=== PATIENT | male | born 1960 | race Caucasian/White ===

== ENCOUNTER 2019-01-14 00:22 | Observation (INO) | payer MEDICARE, OTHER ==
[~2019-01-14] VITALS: Ht 165.1 cm; Wt 81.7 kg
[2019-01-14] VITALS (11 sets, daily range): BP systolic 104–128; BP diastolic 43–97
[2019-01-14] MEDS ORDERED: CETI-267 PO ×2 (00:30→11:32)
[2019-01-14] MEDS ORDERED: LITH150C PO (00:30)
--- OUTSIDE RECORDS SUMMARY | 2019-01-14 00:33 | XMS REPORT | Continuity of Care Document ---
Demographics Preferred Language Unknown Marital Status Unknown Latter-Day Affiliation Unknown Race Unknown Ethnic Group Unknown Author Organization Unknown Address Unknown Allergies Active Description Code Type Severity Reaction Onset Reported/Identified Relationship to Patient Clinical Status Yes Wellbutrin XL Drug Allergy 03/19/2011 Yes Wellbutrin XL Drug Allergy N/A N/A 03/19/2011 Medications There is no data. Problems Date Dx Coded Attending Type Code Diagnosis Diagnosed By 12/24/2010 CHRIS FONTANA DO 296.60 MO BIPOLAR I MIXED UNSPECIFIED 01/22/2011 CHRIS FONTANA DO 296.80 MO BIPOLAR NOS 01/22/2011 CHRIS FONTANA DO V58.69 LONG-TERM (CURRENT) USE OF OTHER MEDICATIONS 02/03/2011 CHRIS FONTANA DO 296.50 MO BIPOLAR I DEPRESSED UNSPECIFIED 03/08/2011 CHRIS FONTANA DO 300.02 AN GEN ANXIETY Procedures There is no data. Results Test Result Range LIPID PANEL - 12/26/18 12:14 CHOLESTEROL, TOTAL 173 mg/dL <200 HDL CHOLESTEROL 41 mg/dL >40 TRIGLYCERIDES 170 mg/dL <150 LDL-CHOLESTEROL 103 mg/dL (calc) NRG CHOL/HDLC RATIO 4.2 (calc) <5.0 NON HDL CHOLESTEROL 132 mg/dL (calc) <130 GLUCOSE, SERUM - 12/26/18 12:14 GLUCOSE 83 mg/dL 65-99 Encounters ACCT No. Visit Date/Time Discharge Status Pt. Type Provider Facility Loc./Unit Complaint [id number] 2018 17:45:00 Document Registration [id number] 04/21/2011 11:00:00 04/21/2011 23:59:59 CLS Outpatient CHRIS FONTANA DO
--- NOTE | 2019-01-14 00:36 | ED Chest Pain ---
General Chief Complaint: Chest Pain Stated Complaint: CHEST PAIN Source: patient, EMS, spouse Exam Limitations: no limitations History of Present Illness Date Seen by Provider: Jan 14, 2019 Time Seen by Provider: 00:18 Initial Comments The patient presents to the ER by EMS from [facility] with chief complaint of chest pain starting about 2345. He states this pain is stabbing, sharp in his right chest radiating towards his right shoulder and his left chest. He's never had a pain like this before. No history of coronary disease. He does have borderline diabetes but does not take any medications routinely. He is known to the [facility]. His been having problems for the past year of some tiredness early on in the afternoon this [facility] but [facility] have not found a diagnosis yet. He has a history of bipolar disorder with anxiety. The does not have any drug allergies. He does not drink or use any recreational drugs. He smokes about 5 cigarettes per day. His dad of a heart attack in his 70s but not any early onset coronary disease in primary family. No swelling in the hands or feet but he is having some tingling in his hands and feet. He has a history of GERD and took omeprazole about 2:00 in the afternoon routinely. He has a history of COPD and nebulizer at home but has not been using it recently does not need it. Denies shortness of breath. He was Short of breath when the pain was coming on but that has resolved. EMS reports that his pain was waning by the time they arrived 3 out of 10. They did not have an IV yet so they put nitroglycerin paste 1 inch. His pain went to 0. Initial EKGs were unremarkable. Allergies and Home Medications Allergies Coded Allergies: No Known Drug Allergies (Unverified , 01/14/19) Patient Home Medication List Home Medication List Reviewed: Yes Review of Systems Review of Systems Constitutional: No chills, No diaphoresis EENTM: No Blurred Vision, No Double Vision Respiratory: Denies Cough, Denies Shortness of Air, Denies SOA With Exertion Cardiovascular: See HPI, Chest Pain; Denies Edema Gastrointestinal: Denies Constipated, Denies Diarrhea, Denies Nausea Genitourinary: Denies Burning, Denies Discharge Musculoskeletal: No back pain, No joint pain Skin: No pruritus, No rash Psychiatric/Neurological: Denies Headache, Denies Numbness Past Vzllljv-Xyhxph-Lghntv Hx Patient Social History Alcohol Use: Denies Use Recreational Drug Use: No Smoking Status: Current Everyday Smoker Type Used: Cigarettes (1 pack per day) Physical Exam Vital Signs Vital Signs - First Documented Capillary Refill : Height, Weight, BMI Height: '" Weight: lbs. oz. kg; BMI Method: General Appearance: No Apparent Distress, WD/WN HEENT: PERRL/EOMI, Pharynx Normal, Moist Mucous Membranes Neck: Full Range of Motion, Normal Inspection, Non Tender, Supple Respiratory: Chest Non Tender, Lungs Clear, Normal Breath Sounds, No Accessory Muscle Use, No Respiratory Distress Cardiovascular: Regular Rate, Rhythm, No Edema, No Gallop, No Murmur, Normal Peripheral Pulses Gastrointestinal: Normal Bowel Sounds, Non Tender, Soft Extremity: Normal Capillary Refill, Normal Inspection, Normal Range of Motion, Non Tender, No Calf Tenderness, No Pedal Edema Neurologic/Psychiatric: Alert, Oriented x3, No Motor/Sensory Deficits Skin: Normal Color, Warm/Dry Progress/Results/Core Measures Results/Orders Lab Results Laboratory Tests Test 01/14/19 00:25 Range/Units White Blood Count 9.2 4.3-11.0 10^3/uL Red Blood Count 4.80 4.35-5.85 10^6/uL Hemoglobin 14.7 13.3-17.7 G/DL Hematocrit 43 40-54 % Mean Corpuscular Volume 89 80-99 FL Mean Corpuscular Hemoglobin 31 25-34 PG Mean Corpuscular Hemoglobin Concent 34 32-36 G/DL Red Cell Distribution Width 13.4 10.0-14.5 % Platelet Count 245 130-400 10^3/uL Mean Platelet Volume 10.9 H 7.4-10.4 FL Neutrophils (%) (Auto) 53 42-75 % Lymphocytes (%) (Auto) 34 12-44 % Monocytes (%) (Auto) 8 0-12 % Eosinophils (%) (Auto) 5 0-10 % Basophils (%) (Auto) 1 0-10 % Neutrophils # (Auto) 4.9 1.8-7.8 X 10^3 Lymphocytes # (Auto) 3.1 1.0-4.0 X 10^3 Monocytes # (Auto) 0.7 0.0-1.0 X 10^3 Eosinophils # (Auto) 0.4 H 0.0-0.3 10^3/uL Basophils # (Auto) 0.1 0.0-0.1 10^3/uL Prothrombin Time 12.5 12.2-14.7 SEC INR Comment 0.9 0.8-1.4 Activated Partial Thromboplast Time 27 24-35 SEC D-Dimer 0.48 0.00-0.49 UG/ML Sodium Level 140 135-145 MMOL/L Potassium Level 3.9 3.6-5.0 MMOL/L Chloride Level 105 98-107 MMOL/L Carbon Dioxide Level 22 21-32 MMOL/L Anion Gap 13 5-14 MMOL/L Blood Urea Nitrogen 17 7-18 MG/DL Creatinine 1.19 0.60-1.30 MG/DL Estimat Glomerular Filtration Rate > 60 BUN/Creatinine Ratio 14 Glucose Level 95 70-105 MG/DL Calcium Level 9.7 8.5-10.1 MG/DL Corrected Calcium 9.6 8.5-10.1 MG/DL Magnesium Level 2.1 1.8-2.4 MG/DL Total Bilirubin 0.2 0.1-1.0 MG/DL Aspartate Amino Transf (AST/SGOT) 26 5-34 U/L Alanine Aminotransferase (ALT/SGPT) 23 0-55 U/L Alkaline Phosphatase 67 40-136 U/L Myoglobin 40.9 10.0-92.0 NG/ML Troponin I < 0.028 <0.028 NG/ML B-Type Natriuretic Peptide < 10.0 <100.0 PG/ML Total Protein 6.5 6.4-8.2 GM/DL Albumin 4.1 3.2-4.5 GM/DL Lipase 56 8-78 U/L Thyroid Stimulating Hormone (TSH) 1.19 0.35-4.94 UIU/ML My Orders Orders - IVELISSE,MALIK J Cbc With Automated Diff (01/14/19:) Magnesium (01/14/19:) Chest 1 View, Ap/Pa Only (01/14/19:) Ekg Tracing (01/14/19:) Cardiac Profile 1 (01/14/19:) Comprehensive Metabolic Panel (01/14/19:) Myoglobin Serum (01/14/19:) Protime With Inr (7/7/19 00:29) Partial Thromboplastin Time (01/14/19 00:29) O2 (01/14/19 00:29) Monitor-Rhythm Ecg Trace Only (01/14/19 00:29) Lipid Panel (01/15/19 06:00) Ed Iv/Invasive Line Start (01/14/19 00:29) Lipase (01/14/19 00:29) BNP (01/14/19 00:29) Fibrin Degradation Products (01/14/19 00:29) Thyroid Stimulating Hormone (01/14/19 00:37) Vital Signs/I&O 01/14/19 01/14/19 01/14/19 00:22 00:22 00:22 Temp 96.7 Pulse 84 Resp 12 B/P (MAP) 138/97 (111) Pulse Ox 98 98 O2 Delivery Room Air Room Air Room Air Progress Progress Note #1: Time: 00:35 Progress Note Labs, chest x-ray, initial EKG unremarkable. Received Nitropaste on his chest he is currently pain-free. If he remains pain-free we may remove it as he was resolved his pain spontaneously before they intervened. EMS already gave him aspirin en route. ED ACS 19 points. Not low risk. This patient is not a candidate for early discharge and should receive a standard chest pain evaluation with delayed troponin testing. Progress Note #2: Time: 01:48 Progress Note The patient is still chest pain-free however his blood pressure slipped down to about 100 systolic so we removed the nitroglycerin paste. He's having some epigastric discomfort so we will give him a GI cocktail. Initial ECG Impression Date: Jan 14, 2019 Initial ECG Impression Time: 00:25 Initial ECG Rate: 88 Initial ECG Rhythm: Normal Sinus Initial ECG Intervals: Normal Initial ECG Impression: Normal Initial ECG Comparisson: No Previous ECG Available Comment No clinically significant ST elevation or depression. Diagnostic Imaging Diagonstic Imaging: Xray Plain Films/CT/US/NM/MRI: chest (1v) Comments No acute cardiopulmonary findings. Reviewed: Reviewed by Me Departure Communication (Admissions) Time/Spoke to Admitting Phy: 01:45 Discussed the case lab EKG imaging findings with Dr. Tatum she agrees to observe the patient. Consult with cardiology. Time/Spoke to Consulting Phy: 01:45 Discussed the case with Dr. Ortiz he agrees to consult on the patient and would recommend morphine over nitroglycerin if he has chest pain recurrence. He would prefer the patient had a cardiac stepdown since he's having epigastric discomfort. Impression Primary Impression: Chest pain Qualified Codes: R07.9 - Chest pain, unspecified Disposition: ADMITTED INPATIENT Condition: Stable Admissions Decision to Admit Reason: Admit from ER (General) Decision to Admit/Date: Jan 14, 2019 Time/Decision to Admit Time: 01:35 Departure-Patient Inst. Referrals: NO,LOCAL PHYSICIAN (PCP) Primary Care Physician MALIK OVIEDO Jan 14, 2019 00:36
[2019-01-14 00:37] LABS: BASOPHILS # (AUTO) 0.1 10^3/uL (0.0-0.1); BASOPHILS % (AUTO) 1 % (0-10); EOSINOPHILS # (AUTO) 0.4 10^3/uL (0.0-0.3); EOSINOPHILS % (AUTO) 5 % (0-10); HEMATOCRIT 43 % (40-54); HEMOGLOBIN 14.7 G/DL (13.3-17.7); LYMPHOCYTES # (AUTO) 3.1 X 10^3 (1.0-4.0); LYMPHOCYTES % (AUTO) 34 % (12-44); MEAN CORPUSCULAR HEMOGLOBIN 31 PG (25-34); MEAN CORPUSCULAR HGB CONC 34 G/DL (32-36); MEAN CORPUSCULAR VOLUME 89 FL (80-99); MEAN PLATELET VOLUME 10.9 FL (7.4-10.4); MONOCYTES # (AUTO) 0.7 X 10^3 (0.0-1.0); MONOCYTES % (AUTO) 8 % (0-12); NEUTROPHILS # (AUTO) 4.9 X 10^3 (1.8-7.8); NEUTROPHILS % (AUTO) 53 % (42-75); PLATELET COUNT 245 10^3/uL (130-400); RED CELL DISTRIBUTION WIDTH 13.4 % (10.0-14.5); WHITE BLOOD COUNT 9.2 10^3/uL (4.3-11.0)
[2019-01-14 00:48] LABS: INR 0.9 (0.8-1.4); PROTHROMBIN TIME PATIENT 12.5 SEC (12.2-14.7)
[2019-01-14 00:58] LABS: ALANINE AMINOTRANSFERASE 23 U/L (0-55); ALBUMIN 4.1 GM/DL (3.2-4.5); ALKALINE PHOSPHATASE 67 U/L (40-136); BILIRUBIN,TOTAL 0.2 MG/DL (0.1-1.0); BUN/CREATININE RATIO 14; CALCIUM 9.7 MG/DL (8.5-10.1); CARBON DIOXIDE 22 MMOL/L (21-32); CHLORIDE 105 MMOL/L (98-107); CREATININE SERUM 1.19 MG/DL (0.60-1.30); GFR ESTIMATED > 60; GLUCOSE 95 MG/DL (70-105); LIPASE 56 U/L (8-78); MAGNESIUM 2.1 MG/DL (1.8-2.4); POTASSIUM 3.9 MMOL/L (3.6-5.0); SODIUM 140 MMOL/L (135-145); TOTAL PROTEIN 6.5 GM/DL (6.4-8.2)
--- NOTE | 2019-01-14 01:35 | NUR ---
ntg paste removed d/t pt hypotension. erp speaking with patient.
[2019-01-14] MEDS ORDERED: FAMOTIDINE 20 MG (PEPCID) TABLET PO STA (01:47)
[2019-01-14] MEDS ORDERED: LIDOCAINE 2% VISCOUS 15 ML UDC PO ONE (02:00)
[2019-01-14] MEDS ORDERED: ANTACID SUSP 30 ML UDC (MYLANTA) PO ONE (02:00)
--- OUTSIDE RECORDS SUMMARY | 2019-01-14 02:01 | XMS REPORT | Continuity of Care Document ---
Demographics Preferred Language Unknown Marital Status Unknown Buddhist Affiliation Unknown Race Unknown Ethnic Group Unknown [...] Status Pt. Type Provider Facility Loc./Unit Complaint [id number] 2018 17:45:00 Document Registration [id number] 04/21/2011 11:00:00 04/21/2011 23:59:59 CLS Outpatient CHRIS FONTANA DO
[2019-01-14] MEDS ORDERED: ANTACID SUSP 30 ML UDC (MYLANTA) PO PRN (03:15)
[2019-01-14] MEDS ORDERED: CATHETER FLUSH 10 ML SYR IV PRN (03:15)
[2019-01-14] MEDS ORDERED: ONDANSETRON 4 MG/2 ML (SDV) Z0FRAN IV PRN (03:15)
[2019-01-14] MEDS ORDERED: ACETAMINOPHEN 500 MG TAB (TYLENOL) PO PRN (03:15)
[2019-01-14] MEDS ORDERED: morphine INJ 4 MG/ML 1 ML (VIAL/SYRINGE) IV PRN (03:15)
[2019-01-14 03:39] LABS: BASOPHILS % (AUTO) 1 % (0-10); EOSINOPHILS # (AUTO) 0.4 10^3/uL (0.0-0.3); EOSINOPHILS % (AUTO) 5 % (0-10); HEMATOCRIT 44 % (40-54); HEMOGLOBIN 14.8 G/DL (13.3-17.7); LYMPHOCYTES # (AUTO) 2.9 X 10^3 (1.0-4.0); LYMPHOCYTES % (AUTO) 33 % (12-44); MEAN CORPUSCULAR HEMOGLOBIN 30 PG (25-34); MEAN CORPUSCULAR HGB CONC 34 G/DL (32-36); MEAN CORPUSCULAR VOLUME 89 FL (80-99); MEAN PLATELET VOLUME 10.7 FL (7.4-10.4); MONOCYTES # (AUTO) 0.6 X 10^3 (0.0-1.0); MONOCYTES % (AUTO) 7 % (0-12); NEUTROPHILS # (AUTO) 4.7 X 10^3 (1.8-7.8); NEUTROPHILS % (AUTO) 54 % (42-75); PLATELET COUNT 242 10^3/uL (130-400); RED CELL DISTRIBUTION WIDTH 13.6 % (10.0-14.5); WHITE BLOOD COUNT 8.6 10^3/uL (4.3-11.0)
[2019-01-14 04:03] LABS: ALANINE AMINOTRANSFERASE 23 U/L (0-55); ALKALINE PHOSPHATASE 66 U/L (40-136); BILIRUBIN,TOTAL 0.3 MG/DL (0.1-1.0); BUN/CREATININE RATIO 17; CALCIUM 9.5 MG/DL (8.5-10.1); CARBON DIOXIDE 21 MMOL/L (21-32); CHLORIDE 106 MMOL/L (98-107); CHOLESTEROL 176 MG/DL (< 200); CREATININE SERUM 1.09 MG/DL (0.60-1.30); GFR ESTIMATED > 60; GLUCOSE 97 MG/DL (70-105); HDL CHOLESTEROL 36 MG/DL (40-60); SODIUM 139 MMOL/L (135-145); TOTAL PROTEIN 6.3 GM/DL (6.4-8.2); TRIGLYCERIDES 189 MG/DL (<150); VLDL CHOLESTEROL 38 MG/DL (5-40)
[2019-01-14] MEDS: CATHETER FLUSH 10 ML SYR IV SCH ×2 (05:11→13:46)
--- NOTE | 2019-01-14 06:33 | Short Stay Summary-Hospitalist ---
History of Present Illness HPI/Chief Complaint Pt is a 58yoCM who presented to the ER due to sharp stabbing central chest pain [place]. He has never had a similar experience. He was given nitropaste which improved his symptoms. He believes he was sweaty and SOB with it as well but is unsure because he was distracted by the pain. He denied any radiation of the pain. He denies pain presently. He was admitted for ACS rule out. Source: patient Date Seen 01/14/19 Time Seen by a Provider: 06:15 Attending Physician Agatha Tatum MD PCP No,Local Physician Referring Physician Date of Admission Jan 14, 2019 at 01:00 Home Medications & Allergies Home Medications Reviewed patient Home Medication Reconciliation performed by pharmacy medication reconciliations cctv technician and/or nursing. Patients Allergies have been reviewed. Allergies Allergies Coded Allergies No Known Drug Allergies (Unverified01/14/19) Past Aeqqloo-Lwbdoz-Blptdb Hx Past Med/Social Hx: Reviewed Nursing Past Med/Soc Hx Patient Social History Alcohol Use: Denies Use Recreational Drug Use: No Smoking Status: Current Everyday Smoker Cigaretts per day: 30 Type Used: Cigarettes (1 pack per day) 2nd Hand Smoke Exposure: Yes Recent Foreign Travel: No Contact w/other who traveled: No Recent Hopitalizations: No Recent Infectious Disease Expo: No Immunizations Up To Date Tetanus Booster (TDap): Unknown Date of Pneumonia Vaccine: Apr 10, 2017 Seasonal Allergies Seasonal Allergies: Yes Past Medical History Surgeries: Gallbladder, Nose, Orthopedic, Rectal Gastrointestinal: Gastroesophageal Reflux, Diverticulosis Psychosocial: Bipolar History of Blood Disorders: No Family History Reviewed Nursing Family Hx Cardiovascular disease 19 FATHER, , Onset:Unknown Diabetes mellitus 19 FATHER, , Onset:Unknown FH: lung disease 19 FATHER, , Onset:Unknown Hip fracture 19 MOTHER, Onset:60 years & older Review of Systems Constitutional: no symptoms reported EENTM: no symptoms reported Respiratory: see HPI Cardiovascular: see HPI Gastrointestinal: no symptoms reported; No abdominal pain, No nausea, No vomiting Genitourinary: no symptoms reported Musculoskeletal: no symptoms reported Skin: no symptoms reported Psychiatric/Neurological: No Symptoms Reported Physical Exam Physical Exam Vital Signs Vital Signs - First Documented Capillary Refill : Less Than 3 Seconds Height, Weight, BMI Height: 5'5.00" Weight: 180lbs. 1.0oz. 81.425579pd; 30.0 BMI Method:Estimated General Appearance: No Apparent Distress, WD/WN HEENT: PERRL/EOMI, Normal ENT Inspection, Moist Mucous Membranes; No Scleral Icterus (L), No Scleral Icterus (R) Neck: Normal Inspection, Supple; No Thyromegaly Respiratory: Lungs Clear, No Accessory Muscle Use, No Respiratory Distress Cardiovascular: Regular Rate, Rhythm, No Edema, No JVD, No Murmur, Normal Peripheral Pulses Gastrointestinal: Normal Bowel Sounds, Non Tender, Soft; No Guarding, No Rebound, No Tenderness Extremity: Normal Capillary Refill, Normal Inspection, Non Tender, No Pedal Edema Neurologic/Psychiatric: Alert, Oriented x3, Normal Mood/Affect; No Aphasia, No Facial Droop Skin: Normal Color, Warm/Dry Results Results/Procedures Labs Patient resulted labs reviewed. Imaging: Reviewed Imaging Report Short Stay Diagnosis Discharge Diagnosis-Short Stay Admission Diagnosis Chest Pain Final Discharge Diagnosis Chest Pain Conclusion Plan Chest pain Troponin negative on presentation, EKG- No STEMI Cardiology consulted appreciate recs Slightly elevated troponin on second check Underwent cardiac cath which was negative for coronary disease Discharge to home in stable condition following cath recovery Clinical Quality Measures AMI/AHF: ASA po Prior to arrival: Yes DVT/VTE Risk/Contraindication: Risk Factor Score Per Nursin RFS Level Per Nursing on Admit: 2=Moderate AGATHA TATUM MD Jan 14, 2019 06:33
--- NOTE | 2019-01-14 07:03 | Diagnostic Imaging Report ---
Indication: Chest pain. Comparison: None. Discussion: Single portable upright view of the chest was obtained. Normal heart size. No focal consolidation, pleural fluid, or pneumothorax. No osseous abnormality. Impression: 1. Negative portable chest. Dictated by: Dictated on workstation # [id number]
[2019-01-14] MEDS ORDERED: meTOprolol TARTRATE 50 MG (LOPRESSOR) TAB PO SCH (09:00)
[2019-01-14] MEDS ORDERED: lisINopril 5 MG (PRINIVIL) TABLET PO SCH (09:00)
[2019-01-14] MEDS ORDERED: ASPIRIN E.C. 81 MG (ECOTRIN) TAB PO SCH (09:00)
--- NOTE | 2019-01-14 10:34 | Consultation-Cardiology ---
HPI-Cardiology Cardiology Consultation: Date of Consultation 01/14/19 Time Seen by a Provider: 10:15 Date of Admission Attending Physician Kathrine Tatum MD Admitting Physician No,Local Physician Consulting Physician JAIDEN TAY MD, MA, FACP, FACC, [facility], CCDS Physician requesting consult: Dr Tatum HPI: Chief Complaint: CC: Chest pain HPI: 58 yo with chest pain: epigastric and lower parasternal, sharp, severe, co ntinuous for 2-3 hours, never experienced before, partially relieved with s/l NTG in ER, associated some diaphoresis and some shortness of breath, radiating towards the R shoulder, no recurrence. Has chronic, mild, exertional shortness of breath. No leg swelling or fever or chills or palp or syncope. Review of Systems-Cardiology Review of Systems Constitutional: No malaise, No tiredness Eyes: No vision change Ears/Nose/Throat: No ear discharge, No nasal drainage, No recent hearing loss Respiratory: As described under HPI Cardiovascular: As described under HPI Gastrointestinal: No diarrhea, No nausea, No vomiting Genitourinary: No dysuria, No hematuria, No urine frequency changes Musculoskeletal: No back pain, No joint pain Skin: No rash, No ulcerations Psychiatric/Neurological: No seizure, No focal weakness, No syncope Hematologic: No bleeding abnormalities LCV-Tgrnqe-Zgnbba Hx Patient Social History Alcohol Use: Denies Use Recreational Drug Use: No Smoking Status: Current Everyday Smoker Type Used: Cigarettes (1 pack per day) 2nd Hand Smoke Exposure: Yes Recent Foreign Travel: No Recent Infectious Disease Expo: No Hospitalization with Isolation: Denies Immunizations Up To Date Tetanus Booster (TDap): Unknown Date of Pneumonia Vaccine: Apr 10, 2017 Past Medical History PMH As described under Assessment. Family Medical History Family History: Cardiovascular disease 19 FATHER, , Onset:Unknown Diabetes mellitus 19 FATHER, , Onset:Unknown FH: lung disease 19 FATHER, , Onset:Unknown Hip fracture 19 MOTHER, Onset:60 years & older Allergies and Home Medications Allergies Coded Allergies: No Known Drug Allergies (Unverified , 01/14/19) Patient Home Medication List Home Medication List Reviewed: Yes Physical Exam-Cardiology Physical Exam Vital Signs/I&O 01/14/19 01/14/19 01/14/19 01/14/19 00:22 00:22 00:22 02:15 Temp 96.7 96.7 Pulse 84 82 Resp 12 18 B/P (MAP) 138/97 (111) 103/79 (87) Pulse Ox 98 98 97 O2 Delivery Room Air Room Air Room Air Room Air 01/14/19 01/14/19 01/14/19 01/14/19 02:50 02:51 03:00 03:15 Temp 97.5 Pulse 77 77 76 Resp 16 15 B/P (MAP) 128/86 (100) 109/65 (80) Pulse Ox 96 97 O2 Delivery Room Air Room Air Room Air 01/14/19 01/14/19 01/14/19 01/14/19 03:30 03:45 04:00 04:00 Pulse 75 79 76 Resp 16 15 16 B/P (MAP) 126/90 (102) 111/73 (86) 114/61 (78) Pulse Ox 97 97 98 O2 Delivery Room Air Room Air Room Air Room Air 01/14/19 01/14/19 01/14/19 01/14/19 05:00 06:00 07:00 08:00 Pulse 81 88 79 81 Resp 14 21 19 B/P (MAP) 122/77 (92) 106/85 (92) 117/97 (104) Pulse Ox 97 96 95 O2 Delivery Room Air Room Air Room Air 01/14/19 01/14/19 01/14/19 08:06 08:10 08:15 Temp 98.0 O2 Delivery Room Air Room Air Capillary Refill : Less Than 3 Seconds Constitutional: AAO x 3, well-developed, well-nourished HEENT: EOMI, hearing is well preserved; No xanthelasmas are seen Neck: carotid pulses are 2 + bilaterally, with good upstrokes Respiratory: accessory muscle use, other (Good bilat air entry) Cardiovascular: regular rate-rhythm, S1 and S2, systolic murmur (soft LITZY at card base) Gastrointestinal: No tender; soft; No guarding, No rebound; audible bowel sounds Extremities: No clubbing, No cyanosis, No significant edema Neurologic/Psychiatric: oriented x 3, grossly intact, power is 5/5 both on sides Skin: No rash on exposed areas, No ulcerations on exposed areas Data Review Labs Laboratory Tests 01/14/19 00:25: White Blood Count 9.2, Red Blood Count 4.80, Hemoglobin 14.7, Hematocrit 43, Mean Corpuscular Volume 89, Mean Corpuscular Hemoglobin 31, Mean Corpuscular Hemoglobin Concent 34, Red Cell Distribution Width 13.4, Platelet Count 245, Mean Platelet Volume 10.9H, Neutrophils (%) (Auto) 53, Lymphocytes (%) (Auto) 34, Monocytes (%) (Auto) 8, Eosinophils (%) (Auto) 5, Basophils (%) (Auto) 1, Neutrophils # (Auto) 4.9, Lymphocytes # (Auto) 3.1, Monocytes # (Auto) 0.7, Eosinophils # (Auto) 0.4H, Basophils # (Auto) 0.1, Prothrombin Time 12.5, INR Comment 0.9, Activated Partial Thromboplast Time 27, D-Dimer 0.48, Sodium Level 140, Potassium Level 3.9, Chloride Level 105, Carbon Dioxide Level 22, Anion Gap 13, Blood Urea Nitrogen 17, Creatinine 1.19, Estimat Glomerular Filtration Rate > 60, BUN/Creatinine Ratio 14, Glucose Level 95, Calcium Level 9.7, Corrected Calcium 9.6, Magnesium Level 2.1, Total Bilirubin 0.2, Aspartate Amino Transf (AST/SGOT) 26, Alanine Aminotransferase (ALT/SGPT) 23, Alkaline Phosphatase 67, Myoglobin 40.9, Troponin I < 0.028, B-Type Natriuretic Peptide < 10.0, Total Protein 6.5, Albumin 4.1, Lipase 56, Thyroid Stimulating Hormone (TSH) 1.19 01/14/19 03:32: White Blood Count 8.6, Red Blood Count 4.90, Hemoglobin 14.8, Hematocrit 44, Mean Corpuscular Volume 89, Mean Corpuscular Hemoglobin 30, Mean Corpuscular Hemoglobin Concent 34, Red Cell Distribution Width 13.6, Platelet Count 242, Mean Platelet Volume 10.7H, Neutrophils (%) (Auto) 54, Lymphocytes (%) (Auto) 33, Monocytes (%) (Auto) 7, Eosinophils (%) (Auto) 5, Basophils (%) (Auto) 1, Neutrophils # (Auto) 4.7, Lymphocytes # (Auto) 2.9, Monocytes # (Auto) 0.6, Eosinophils # (Auto) 0.4H, Basophils # (Auto) 0.0, Sodium Level 139, Potassium Level 4.0, Chloride Level 106, Carbon Dioxide Level 21, Anion Gap 12, Blood Urea Nitrogen 18, Creatinine 1.09, Estimat Glomerular Filtration Rate > 60, BUN/Creatinine Ratio 17, Glucose Level 97, Calcium Level 9.5, Corrected Calcium 9.5, Total Bilirubin 0.3, Aspartate Amino Transf (AST/SGOT) 23, Alanine Aminotransferase (ALT/SGPT) 23, Alkaline Phosphatase 66, Total Protein 6.3L, Albumin 4.0, Triglycerides Level 189H, Cholesterol Level 176, LDL Cholesterol Direct 119, VLDL Cholesterol 38, HDL Cholesterol 36L 01/14/19 07:40: Troponin I 0.038H Laboratory Tests 01/14/19 00:25 01/14/19 03:32 A/P-Cardiology Assessment/Admission Diagnosis Chest pain with minimal troponin elevation, suggestive of ac NSTEMI Borderline DM II Chronic smoker of cigarettes Elevated BMI (30) Discussion and Recomendations * Advised to quit smoking * Treated with ASA, bb, and statin * Given suspicion for and evidence of ACS, we recommend card cath/PCI * I discussed the rationale, procedure, risks, benefits, potential complicati ons, and alternatives of card cath and possible PCI with him. He understands and provides informed consent Clinical Quality Measures AMI/AHF: ASA po Prior to arrival: Yes DVT/VTE Risk/Contraindication: Risk Factor Score Per Nursin RFS Level Per Nursing on Admit: 2=Moderate JAIDEN TAY MD FACP FAC CCDS Jan 14, 2019 10:34
[2019-01-14] MEDS ORDERED: HEParin (CATH LAB) 2,000 ML IV ONE (11:28)
[2019-01-14] MEDS ORDERED: PANT40TA3 PO (11:32)
[2019-01-14] MEDS ORDERED: LITH300C PO (11:33)
[2019-01-14] MEDS ORDERED: FLUT16SP22 NS (11:38)
[2019-01-14] MEDS ORDERED: LIDOCAINE 1% INJ 20 ML 20 ML VIAL ONE (13:23)
[2019-01-14] MEDS ORDERED: fentaNYL INJECTION 100 MCG/2 ML AMP ONE (13:24)
[2019-01-14] MEDS ORDERED: MIDAZOLAM 5 MG/5 ML (VERSED) VIAL ONE (13:24)
[2019-01-14] MEDS ORDERED: NS IV 1000 ML 1,000 ML ONE (13:49)
[2019-01-14] MEDS ORDERED: NS IV 1000 ML 1,000 ML IV SCH (14:35)
--- NOTE | 2019-01-14 14:35 | Cardiac Procedure Note-CS/ASA ---
Pre-Procedure Note Pre-Op Procedure Note H&P Reviewed The H&P was reviewed, patient examined and no changes noted. Date H&P Reviewed: Jan 14, 2019 Time H&P Reviewed: 14:00 Conscious Sedation Pre-Proced Time 14:00 ASA Score 3 For ASA 3 and 4: Consider anesthesia and medical clearance. Also, for patients with a history of failed moderate sedation consider anesthesia. Airway Lungs Heart ASA score ASA 1: a normal healthy patient ASA 2: a patient with a mild systemic disease (mid diabetes, controlled hypertension, obesity ASA 3: a patient with a severe systemic disease that limits activity (angina, COPD, prior Myocardial infarction) ASA 4: a patient with an incapacitating disease that is a constant threat to life (CHF, renal failure) ASA 5: a moribund patient not expected to survive 24 hrs. (ruptured aneurysm) ASA 6: a declared brain- patient whose organs are being harvested. For emergent operations, add the letter E after the classification Mallampati Classification Grade 2 Sedation Plan Analgesia, Amnesia, Plan communicated to team members, Discussed options with patient/fam, Discussed risks with patient/fam The patient is an appropriate candidate to undergo the planned procedure, sedation, and anesthesia. The patient immediately re-assessed prior to indication. JAIDEN TAY MD FACP FAC CCDS Jan 14, 2019 14:35
[2019-01-14] MEDS ORDERED: PATIENT MAY USE OWN MEDS, ALL PO SCH (14:45)
[2019-01-14] MEDS ORDERED: ATOR40TA PO (17:07)
--- NOTE | 2019-01-14 17:08 | Discharge Inst-Simple/Standard ---
Discharge Inst-Standard Patient Instructions/Follow Up Plan of Care/Instructions/FU: Please continue to take your medications as written. Please follow up with your PCP Dr James in the next week to follow up this hospital stay. Activity as Tolerated: Yes Discharge Diet: Cardiac Diet Return to The Hospital For: Chest pain, shortness of breath, if you feel you are getting worse. AGATHA VALENTIN MD Jan 14, 2019 17:08
--- NOTE | 2019-01-14 19:10 | CARDIAC CATHETERIZATION ---
DATE OF SERVICE: 01/14/2019 CARDIAC CATHETERIZATION REPORT The patient is a 58-year-old gentleman who has multiple coronary artery disease risk factors and who presents with chest pain. Troponin was initially normal and subsequently mildly elevated. This was suggestive of acute non-ST elevation myocardial infarction. Cardiac catheterization was carried out after having obtained an informed consent. PROCEDURE: He was brought to the cardiac catheterization laboratory. Right groin was prepared and draped in the usual sterile fashion. Lidocaine 1% was used for local anesthesia. Modified Seldinger technique was used to advance a 5-[place] sheath in the right femoral artery, 5-[place] JL3.5 catheter was used for left coronary angiography and 5-[place] JR4 catheter used for right coronary angiography. A 5-[place] pigtail catheter was used for left heart catheterization and left ventricular angiography. Pigtail catheter was then pulled back to the aortic arch and aortic arch angiography was performed. He tolerated the procedure well. At the end of the procedure, angiography of the right femoral artery was carried out through the sheath and Mynx was used to achieve hemostasis. He tolerated the procedure well. HEMODYNAMICS: Left ventricular end-diastolic pressure following coronary angiography was 13 mmHg. There is no significant pressure gradient on pullback across the valve. Ascending aortic pressure was 93/63 with a mean of 77 mmHg. LEFT VENTRICULAR ANGIOGRAPHY: Left ventricular angiography was carried out in the right anterior oblique projection. Global left ventricular systolic function normal. No regional wall motion abnormality is seen. Left ventricular ejection fraction approximately 60%. CORONARY ANGIOGRAPHY: Left main coronary artery, left anterior descending, left circumflex artery and right coronary artery do not exhibit any angiographically significant coronary artery disease. There is minimal spasm of the small caliber right coronary artery with the catheter engagement. There does not appear to be any significant disease. Left circumflex artery is dominant. The right coronary artery is small and nondominant. CONCLUSIONS: 1. No angiographically significant coronary artery disease. 2. Normal global left ventricular systolic function with ejection fraction approximately 50%. 3. Left ventricular end-diastolic pressure at the top limit of normal to mildly elevated. DISCUSSION AND RECOMMENDATIONS: Based on results of the study, chest discomfort does not appear to be of cardiac origin. Continuing risk factor modification is advised. Outpatient followup is advised. Job ID: [id number] DocumentID: [id number] Dictated Date: 01/14/2019 14:31:55 [employer] Date: 01/14/2019 19:09:31 Dictated By: JAIDEN TAY MD, MA, FACP, FACC,
[2019-01-14] MEDS ORDERED: ATORVASTATIN 40 MG (LIPITOR) TABLET PO SCH (21:00)
== END 2019-01-14 18:40 | disposition home or self-care (01) ==
LOC: ER 00:29 → ICU 01:00
PROVIDERS: ADMIT Family Medicine; ATTEND Family Medicine
DX: R07.89 Other chest pain (principal); R73.03 Prediabetes; F17.210 Nicotine dependence, cigarettes, uncomplicated; K21.9 Gastro-esophageal reflux disease without esophagitis; K57.90 Diverticulosis of intestine, part unspecified, without perforation or abscess without bleeding; F31.9 Bipolar disorder, unspecified; F41.9 Anxiety disorder, unspecified
CPT/HCPCS: 36221; 36415; 71045; 80053; 80061; 83690; 83735; 83874; 83880; 84443; 84484; 85025; 85379; 85610; 85730; 93005; 93041; 93458